=== PATIENT | male | born 1940 | race Caucasian/White ===

== ENCOUNTER → 2021-05-01 | Outpatient (CLI) | payer MEDICARE ==
[~2021-05-01] MED LIST: BENICAR5 MG PO; CARAFATE 1 GM TA1 GM PO; FLOMAX 0.4 MG0.4 MG PO; PLAVIX 75 MG TA75 MG PO; PROSCAR5 MG PO; PROTONIX40 MG PO
== END ==
LOC: LBRF 16:28
DX: R82.79 Other abnormal findings on microbiological examination of urine (principal)
CPT/HCPCS: 81001; 87077; 87086; 87186

== ENCOUNTER 2021-06-20 06:59 | Emergency (ER) | payer MEDICARE ==
[2021-06-20 07:36] LABS: HEMOGLOBIN 13.2 gm/dl (14.0-17.5); RED BLOOD COUNT 4.78 M/UL (4.20-5.50); WHITE BLOOD COUNT 8.3 K/UL (4.5-11.0)
[2021-06-20 07:55] LABS: BUN/CREATININE RATIO 18 (0-10)
== END 2021-06-20 14:42 | disposition home or self-care (01) ==
LOC: ER1 06:59
PROVIDERS: Physician Assistant
DX: Z46.6 Encounter for fitting and adjustment of urinary device (principal); R31.9 Hematuria, unspecified; S32.019A Unspecified fracture of first lumbar vertebra, initial encounter for closed fracture; J40 Bronchitis, not specified as acute or chronic; N40.0 Benign prostatic hyperplasia without lower urinary tract symptoms; I10 Essential (primary) hypertension; Z86.73 Personal history of transient ischemic attack (TIA), and cerebral infarction without residual deficits; Z51.81 Encounter for therapeutic drug level monitoring
CPT/HCPCS: 71045; 80053; 81001; 85025; 85610; 85730; 87086; 99284